=== PATIENT | female | born 2000 | race Caucasian/White ===

== ENCOUNTER 2020-11-19 05:15 | Emergency (ER) | payer BC ==
[~2020-11-19] VITALS: Ht 157.5 cm; Wt 49.4 kg
[2020-11-19 05:25] VITALS: BP 105/61
--- NOTE | 2020-11-19 05:25 | NUR ---
TO BED AMBULATORY
--- NOTE | 2020-11-19 05:30 | NUR ---
PT AMBULATED TO THE BATHROOM
--- NOTE | 2020-11-19 05:35 | NUR ---
PATIENT PRESENTS TO ED WITH ABDOMINAL PAIN. PT STATES "I THINK IT'S BECAUSE OF MY NEW CONTROL." PT IS EMOTIONAL PT STARTS TO CRY SAYING "I JUST WANT TO FIGURE OUT WHAT'S GOING ON." LAST MENSTRUAL CYCLE 11/02/20. DENIES N/V/D; SKIN IS PINK/WARM/DRY; AAOX4 WITH EVEN AND STEADY GAIT; LUNGS CLEAR BL; HR EVEN AND REGULAR; PT DENIES ANY FEVER, CP, SOB, OR COUGH AT THIS TIME; PATIENT STATES PAIN OF 6/10 AT THIS TIME; VSS; PATIENT POSITIONED FOR COMFORT; HOB ELEVATED; BEDRAILS UP X2; BED DOWN. ER MD MADE AWARE OF PT STATUS. PMH: N/A ALLERGIES: N/A
[2020-11-19] MEDS ORDERED: KETOROLAC 30 MG/ML VIAL IVP ONE (05:50)
[2020-11-19] MEDS ORDERED: NACL 0.9% 1,000 ML IV ONE (05:50)
[2020-11-19 06:19] LABS: BASOPHILS % (AUTO) 0.1 % (0.0-2.0); EOSINOPHILS # (AUTO) 0.1 K/uL (0-0.4); EOSINOPHILS % (AUTO) 0.9 % (0.0-4.0); HEMATOCRIT 39.8 % (36-48); HEMOGLOBIN 13.3 g/dL (12.0-16.0); LYMPHOCYTES # (AUTO) 1.6 K/uL (2.5-16.5); LYMPHOCYTES % (AUTO) 12.9 % (20.5-51.1); MEAN CORPUSCULAR HEMOGLOBIN 31 pg (27-31); MEAN CORPUSCULAR HGB CONC 34 g/dL (33-37); MEAN CORPUSCULAR VOLUME 91.5 fL (80-94); MONOCYTES # (AUTO) 0.8 K/uL (0.8-1.0); MONOCYTES % (AUTO) 6.9 % (1.7-9.3); NEUTROPHILS # (AUTO) 9.6 K/uL (1.8-7.7); NEUTROPHILS % (AUTO) 79.2 % (42.2-75.2); PLATELET COUNT (AUTO) 242 K/uL (140-450); RED BLOOD CELL COUNT(AUTO) 4.35 MIL/uL (4.20-5.40); RED CELL DISTRIBUTION WIDTH 12.7 % (11.6-13.7); WHITE BLOOD COUNT (AUTO) 12.1 K/uL (4.8-10.8)
--- NOTE | 2020-11-19 06:25 | NUR ---
PT REFUSED MEDICATION
--- NOTE | 2020-11-19 06:40 | NUR ---
ULTRASOUND WITH PATIENT
--- NOTE | 2020-11-19 06:43 | NUR ---
PT AMBULATED TO THE BATHROOM
[2020-11-19 07:25] LABS: ALBUMIN 3.8 g/dL (3.4-5.0); CARBON DIOXIDE 21.9 mmol/L (21-32); CREATININE 0.8 mg/dL (0.6-1.3); POTASSIUM 3.9 mmol/L (3.5-5.1); TOTAL BILIRUBIN 0.3 mg/dL (0.0-1.0)
--- NOTE | 2020-11-19 07:50 | NUR ---
PT AMBULATED TO BATHROOM AT THIS TIME
[2020-11-19 08:26] VITALS: BP 105/61
--- NOTE | 2020-11-19 08:27 | NUR ---
Patient discharged with v/s stable. Written and verbal after care instructions given and explained. Patient verbalized understanding. Ambulatory with steady gait. All questions addressed prior to discharge. Advised to follow up with PMD.
[2020-11-19 08:41] LABS: BILIRUBIN,URINE NEGATIVE (NEGATIVE); BLOOD, URINE NEGATIVE (NEGATIVE); COLOR,URINE YELLOW (YELLOW); LEUKOCYTE ESTERASE ,URINE NEGATIVE (NEGATIVE); NITRITE, URINE NEGATIVE (NEGATIVE); PH,URINE 7.5 (5.0-9.0); UGLUCOSE NEGATIVE (NEGATIVE)
[2020-11-19 08:49] LABS: APPEARANCE,URINE SLIGHTLY HAZY (CLEAR)
[2020-11-19 08:50] LABS: RBC,URINE 0-5 /HPF (0-5); WBC,URINE 0-5 /HPF (0-5)
== END 2020-11-19 08:27 | disposition home or self-care (01) ==
LOC: MED 05:15
DX: R10.30 Lower abdominal pain, unspecified (principal)
CPT/HCPCS: 36415; 76830; 76856; 80053; 81001; 81025; 85025; 87040; 96360; 99284; J7030; 96361; 96374; J1885